=== PATIENT | female | born 2000 | race Two or more races ===

== ENCOUNTER 2021-02-08 11:36 | Inpatient (IN) | payer OTHER ==
[~2021-02-08] VITALS: Ht 172.7 cm; Wt 70.5 kg
[2021-02-08] MEDS ORDERED: RISPERIDONE O0.25 MG (11:51)
[2021-02-08] MEDS ORDERED: EVOCLIN100 GM (11:51)
[2021-02-08] MEDS ORDERED: CELEXA20 MG (11:51)
[2021-02-08] MEDS ORDERED: ATIVAN1 M1 (11:51)
[2021-02-11] MEDS ORDERED: BACTRIM DS TAB1 EACH PO (13:11)
== END 2021-02-11 14:30 | disposition home or self-care (01) | DRG 603 ==
LOC: EMR PED 11:36 → PED 12:24
PROVIDERS: ADMIT Emergency Medicine; ATTEND Emergency Medicine
DX: L02.212 Cutaneous abscess of back [any part, except buttock and flank] (principal); L73.2 Hidradenitis suppurativa

== ENCOUNTER 2021-08-15 06:43 | Day surgery (SDC) | payer OTHER ==
[~2021-08-15] VITALS: Ht 152.4 cm; Wt 77.1 kg
[~2021-08-15 06:43] MED LIST: ATIVAN1 M1; BACTRIM DS TAB1 EACH PO; CELEXA20 MG; EVOCLIN100 GM; RISPERIDONE O0.25 MG
[2021-08-15] MEDS ORDERED: MORGIDOX100 MG PO (17:39)
[2021-08-15] MEDS ORDERED: IBU600 MG PO (17:39)
== END 2021-08-15 23:20 | disposition home or self-care (01) ==
LOC: ER 06:43 → EMR PED 06:43 → CIR.AMB 13:49
PROVIDERS: ATTEND Obstetrics & Gynecology
DX: O03.4 Incomplete spontaneous abortion without complication (principal); Z88.8 Allergy status to other drugs, medicaments and biological substances; F17.200 Nicotine dependence, unspecified, uncomplicated; Z20.822 Contact with and (suspected) exposure to COVID-19